=== PATIENT | female | born 2005 | race Two or more races ===

== ENCOUNTER 2023-10-28 18:51 | Emergency (ER) | payer OTHER ==
[~2023-10-28] VITALS: Ht 157.5 cm; Wt 59.0 kg
[2023-10-28 20:44] LABS: HEMATOCRIT 34.2 % (36.0-45.00); HEMOGLOBIN 11.8 g/dL (12.0-15.00); MEAN CELL VOLUME 88.4 fL (80.00-100.00); MEAN CORPUSCULAR HEMOGLOBIN 30.7 pg (27.00-32.0); MEAN CORPUSCULAR HGB CONC 34.7 g/dl (32.0-36.0); PLATELET COUNT 213 K/uL (150-450); RED BLOOD COUNT 3.87 M/uL (4.00-6.00); RED CELL DISTRIBUTION WIDTH 12.8 % (11.5-14.5)
[2023-10-28 20:51] LABS: PH,URINE 5.5 (5.0-8.0); URINE APPEARANCE Clear; URINE BILIRRUBIN Negative (NEGATIVE); URINE BLOOD Negative; URINE COLOR Yellow; URINE GLUCOSE Negative (NEGATIVE); URINE LEUKOCYTE Trace; URINE NITRATE Negative; URINE PROTEIN Negative (NEGATIVE)
[2023-10-28 20:54] LABS: URINE BACTERIA 1670.6 uL (0.0-1933); URINE EPITHELIAL CELLS 23.8 uL (0.0-38.8); URINE WBC 27.3 uL (0.0-23.2)
[2023-10-28 20:56] LABS: URINE RBC 1.8 uL (0.0-20.8)
[2023-10-28 21:14] LABS: CALCIUM 8.5 mg/dL (8.5-10.1); CREATININE SERUM 0.6 mg/dL (0.55-1.02); GFR 127.45; POTASSIUM 3.66 mEq/L (3.5-5.1)
[2023-10-28 22:19] LABS: ALBUMIN 2.7 gm/dL (3.4-5.0); ALKALINE PHOSPHATASE 64 U/L (50-136); ALT/SGPT 51 U/L (12-78); AST/SGOT 23 U/L (15-37); BILIRUBIN TOTAL 0.16 mg/dL (0.3-1.2); BILIRUBIN,CONJUGATED < 0.10 mg/dL (0.0-0.2); BILIRUBIN,UNCONJUGATED 0.06 mg/dL (0.0-0.6); TOTAL PROTEIN 6.8 gm/dL (6.4-8.2)
[2023-10-28] MEDS ORDERED: AMOXICILLIN500 MG PO (23:15)
== END 2023-10-28 23:15 | disposition home or self-care (01) ==
LOC: ER 18:52
PROVIDERS: Emergency Medicine
DX: O99.891 Other specified diseases and conditions complicating pregnancy (principal); Z3A.27 27 weeks gestation of pregnancy; R42 Dizziness and giddiness; R82.81 Pyuria